=== PATIENT | female | born 1960 | race Caucasian/White ===

== ENCOUNTER 2021-08-14 13:14 | Inpatient (IN) | payer OTHER ==
[~2021-08-14] VITALS: Ht 160 cm; Wt 59.0 kg
[2021-08-14 14:00] LABS: HEMOGLOBIN 16.7 gm/dl (12.3-15.3); RED BLOOD COUNT 5.4 M/UL (4.00-5.10); WHITE BLOOD COUNT 10.3 K/UL (4.5-11.0)
[2021-08-14 14:20] LABS: BUN/CREATININE RATIO 22 (0-10)
[2021-08-15 07:33] LABS: HEMOGLOBIN 14.8 gm/dl (12.3-15.3); RED BLOOD COUNT 4.88 M/UL (4.00-5.10); WHITE BLOOD COUNT 9.2 K/UL (4.5-11.0)
[2021-08-15 08:23] LABS: BUN/CREATININE RATIO 19 (0-10)
[2021-08-17 06:27] LABS: HEMOGLOBIN 13.9 gm/dl (12.3-15.3); RED BLOOD COUNT 4.55 M/UL (4.00-5.10)
[2021-08-17 06:28] LABS: WHITE BLOOD COUNT 13.1 K/UL (4.5-11.0)
[2021-08-17 06:53] LABS: BUN/CREATININE RATIO 28 (0-10)
[2021-08-18 06:58] LABS: HEMOGLOBIN 13.1 gm/dl (12.3-15.3); RED BLOOD COUNT 4.48 M/UL (4.00-5.10); WHITE BLOOD COUNT 10.7 K/UL (4.5-11.0)
[2021-08-18 07:26] LABS: BUN/CREATININE RATIO 29 (0-10)
[2021-08-19 08:06] LABS: RED BLOOD COUNT 4.76 M/UL (4.00-5.10); WHITE BLOOD COUNT 11.6 K/UL (4.5-11.0)
[2021-08-19 08:58] LABS: BUN/CREATININE RATIO 30 (0-10)
[2021-08-20 04:23] LABS: HEMOGLOBIN 15.1 gm/dl (12.3-15.3); RED BLOOD COUNT 4.96 M/UL (4.00-5.10); WHITE BLOOD COUNT 10.8 K/UL (4.5-11.0)
[2021-08-20 04:45] LABS: BUN/CREATININE RATIO 32 (0-10)
[2021-08-22] MEDS ORDERED: MEDROL DOSEPAK 24 MG PO (17:01)
[2021-08-22] MEDS ORDERED: IPRAT-ALBUT 0.5-3 ML NEB (17:01)
[2021-08-22] MEDS ORDERED: NICOTINE PATCH1 EAC1 TOP (17:01)
[2021-08-22] MEDS ORDERED: SYMBICORT 16010.2 GM INH (17:01)
[2021-08-22] MEDS ORDERED: SPIRIVA RESPIMAT4 GM INH (17:01)
[2021-08-22] MEDS ORDERED: PROAIR HFA8.5 GM INH (17:04)
[2021-08-23] MEDS ORDERED: SYMBICORT 16010.2 GM INH (17:18)
== END 2021-08-23 18:25 | disposition home or self-care (01) | DRG 189 ==
LOC: ER1 13:14 → CDU 18:07 → M/S 18:07
PROVIDERS: Internal Medicine; Physician Assistant; Physician Assistant Medical; Student in an Organized Health Care Education/Training Program; ADMIT Internal Medicine Infectious Disease
DX: J96.21 Acute and chronic respiratory failure with hypoxia (principal); E87.2 Acidosis; F41.9 Anxiety disorder, unspecified; J42 Unspecified chronic bronchitis; Z20.822 Contact with and (suspected) exposure to COVID-19; J43.9 Emphysema, unspecified; M51.36 Other intervertebral disc degeneration, lumbar region; J96.22 Acute and chronic respiratory failure with hypercapnia; F17.210 Nicotine dependence, cigarettes, uncomplicated; Z90.710 Acquired absence of both cervix and uterus; Z98.890 Other specified postprocedural states; Z82.49 Family history of ischemic heart disease and other diseases of the circulatory system; Z79.52 Long term (current) use of systemic steroids
CPT/HCPCS: 36415; 36600; 71045; 80048; 80053; 82550; 82553; 82803; 83605; 83735; 83880; 84484; 85025; 85027; 85379; 87040; 94003; 94640; 94660; 94664; 94760; 96374; 96375; 99285; J0456; J0696; J1100; J1650; J2920; J2930; J7030; Q9967; U0002

== ENCOUNTER → 2021-09-10 | Outpatient (CLI) | payer OTHER ==
[~2021-09-10] MED LIST: IPRAT-ALBUT 0.5-3 ML NEB; MEDROL DOSEPAK 24 MG PO; NICOTINE PATCH1 EAC1 TOP; PROAIR HFA8.5 GM INH; SPIRIVA RESPIMAT4 GM INH; SYMBICORT 16010.2 GM INH
== END ==
LOC: HEART 5 10:53
DX: J44.9 Chronic obstructive pulmonary disease, unspecified (principal)
CPT/HCPCS: 94060; 94729

== ENCOUNTER → 2021-11-12 | Outpatient (CLI) | payer OTHER ==
[2021-11-12 13:32] LABS: HEMOGLOBIN 16.3 gm/dl (12.3-15.3); RED BLOOD COUNT 5.18 M/UL (4.00-5.10); WHITE BLOOD COUNT 11.6 K/UL (4.5-11.0)
[2021-11-12 13:52] LABS: BUN/CREATININE RATIO 23 (0-10)
== END ==
LOC: LAB 12:52
PROVIDERS: Family Medicine
DX: E78.5 Hyperlipidemia, unspecified (principal); J44.9 Chronic obstructive pulmonary disease, unspecified; F41.9 Anxiety disorder, unspecified; F31.9 Bipolar disorder, unspecified; G47.00 Insomnia, unspecified
CPT/HCPCS: 36415; 80053; 80061; 84443; 85025

== ENCOUNTER → 2022-05-20 | Outpatient (CLI) | payer OTHER ==
[2022-05-20 10:06] LABS: BUN/CREATININE RATIO 22 (0-10)
== END ==
LOC: LAB 09:25
PROVIDERS: Family Medicine
DX: E78.2 Mixed hyperlipidemia (principal); R73.9 Hyperglycemia, unspecified
CPT/HCPCS: 36415; 80053; 80061; 83036; 83735